=== PATIENT | female | born 1955 ===

== ENCOUNTER 2016-09-10 16:20 | Outpatient (CLI) | payer OTHER ==
--- NOTE | 2016-09-10 17:04 | DIAGNOSTIC IMAGING REPORT ---
PROCEDURE: XR LUMBAR SPINE 2 OR 3 VIEWS INDICATION: SCIATICA TECHNIQUE: Three views. COMPARISON: 05/09/2016 lumbar spine FINDINGS: Normal alignment without fracture. Moderate spur formation with mild L4-5 and L5-S1 disc space narrowing. Soft tissues are unremarkable . IMPRESSION: 1. Moderate degenerative changes
--- NOTE | 2016-09-10 17:12 | DIAGNOSTIC IMAGING REPORT ---
PROCEDURE: XR KNEE 3 VIEWS BILATERAL INDICATION: SCIATICA TECHNIQUE: Three views of each knee. COMPARISON: None. FINDINGS: RIGHT KNEE: There is severe patellofemoral osteoarthritis with narrowing of the joint space laterally and hypertrophic spur formation. LEFT KNEE: There is severe patellofemoral osteoarthritis with narrowing of the joint space laterally and hypertrophic spur formation. IMPRESSION: 1. Bilateral patellofemoral osteoarthritis. 2. Preservation of the medial and lateral joint space compartments of the knees bilaterally.
== END 2016-09-10 23:00 ==
LOC: XR SRH 16:20
DX: M51.37 Other intervertebral disc degeneration, lumbosacral region (principal); M48.07 Spinal stenosis, lumbosacral region; M48.06 Spinal stenosis, lumbar region; M17.0 Bilateral primary osteoarthritis of knee

== ENCOUNTER 2016-10-21 11:13 | Outpatient (CLI) | payer OTHER | END 2016-10-21 23:00 | LOC: LAB SRH 11:13 | DX: G72.9 Myopathy, unspecified (principal) | CPT/HCPCS: 90074; 90100; 92610; 95059; 95150 ==

== ENCOUNTER 2016-11-05 13:11 | Outpatient (CLI) | payer OTHER ==
--- NOTE | 2016-11-05 15:51 | DIAGNOSTIC IMAGING REPORT ---
PROCEDURE: US ART LOWER EXT WITH NERY-B/L INDICATION: MYELOPATHY TECHNIQUE: Color Doppler duplex imaging of the lower extremity arterial system was performed bilaterally. Pre and post exercise ABIs were acquired. COMPARISON: None. FINDINGS: Arm blood pressure 172 RIGHT LOWER EXTREMITY: ABIs: Pre exercise posterior tibial: 190 Pre exercise dorsalis pedis: 188 Postexercise posterior tibial: 186 Postexercise dorsalis pedis: 182 VESSELS/ WAVEFORMS: Triphasic RIGHT LOWER EXTREMITY PEAK SYSTOLIC VELOCITIES: External iliac: 109 cm/second. Common femoral artery: 90 cm/second. Profunda femoral artery: 56 cm/second. Proximal superficial femoral artery: 112 cm/second. Mid superficial femoral artery: 126 cm/second. Distal superficial femoral artery: 109 cm/second. Popliteal artery: 79 cm/second. Proximal posterior tibial artery: 108 cm/second. Proximal anterior tibial artery: 34 cm/second. Distal posterior tibial artery: 112 cm/second. Dorsalis pedis artery: 79 cm/second. LEFT LOWER EXTREMITY: ABIs: Pre exercise posterior tibial: 192 Pre exercise dorsalis pedis: 182 Postexercise posterior tibial: 186 Postexercise dorsalis pedis: 180 VESSELS/ WAVEFORMS: Triphasic LEFT LOWER EXTREMITY PEAK SYSTOLIC VELOCITIES: External iliac: 170 cm/second. Common femoral artery: 139 cm/second. Profunda femoral artery: 63 cm/second. Proximal superficial femoral artery: 124 cm/second. Mid superficial femoral artery: 126 cm/second. Distal superficial femoral artery: 117 cm/second. Popliteal artery: 99 cm/second. Proximal posterior tibial artery: 96 cm/second. Proximal anterior tibial artery: 60 cm/second. Distal posterior tibial artery: 132 cm/second. Dorsalis pedis artery: 89 cm/second. IMPRESSION: 1. Minimal plaque bilaterally. No stenosis.
== END 2016-11-05 23:00 ==
LOC: US SRH 13:11
DX: G95.9 Disease of spinal cord, unspecified (principal)

== ENCOUNTER 2016-11-20 07:54 | Outpatient (CLI) | payer OTHER | END 2016-11-20 23:00 | LOC: LAB SRH 07:54 | DX: G72.9 Myopathy, unspecified (principal) | CPT/HCPCS: 90074; 90648; 91286; 93010; 93140 ==

== ENCOUNTER 2016-11-26 12:47 | Outpatient (CLI) | payer OTHER ==
--- NOTE | 2016-11-26 14:14 | DIAGNOSTIC IMAGING REPORT ---
PROCEDURE: MR LUMBAR SPINE W/O CONTRAST INDICATION: MYELOPATHY TECHNIQUE: Noncontrast T1, T2, and STIR sagittal images. T1 and T2 axial images. COMPARISON: Lumbar spine films dated 09/10/2016 FINDINGS: L1-2: Normal. L2-3: Normal. L3-4: Normal. L4-5: Herniated nucleus pulposus L4-5 on the left. There is displacement and indentation of the thecal sac. L5-S1: There is mild bulge of the annulus at L5-S1. IMPRESSION: 1. Herniated nucleus pulposus L5-S1 on the left
== END 2016-11-26 23:00 ==
LOC: MRI SRH 12:47
DX: M51.27 Other intervertebral disc displacement, lumbosacral region (principal)

== ENCOUNTER 2016-12-30 09:19 | Outpatient (CLI) | payer OTHER ==
--- NOTE | 2017-01-02 10:51 | DIAGNOSTIC IMAGING REPORT ---
PROCEDURE: MG BILATERAL SCREENING W/CAD INDICATION: SCREENING TECHNIQUE: Bilateral CC and MLO digital views. COMPARISON: Mammograms 12/26/2015, 12/19/2014 and 12/13/2013. FINDINGS: Computer-aided detection applied. Moderately dense. Diffuse dystrophic calcifications consistent with sclerosing adenosis, left greater than right. No significant interval change. IMPRESSION: 1. Negative mammogram RESULT CODE: 2- Benign finding(s). A. A negative report should not delay biopsy if a dominant or clinically suspicious mass is present. 10-15% of cancers are not identified by x-ray. B. A negative report may reinforce clinical impression. C. Adenosis and dense breasts may obscure an underlying neoplasm. D. False positive reports average 6-10%. E.. A yearly screening mammogram is recommended. A reminder letter will be scheduled.
== END 2016-12-30 23:00 ==
LOC: MAM SRH 09:19
DX: Z12.31 Encounter for screening mammogram for malignant neoplasm of breast (principal)